=== PATIENT | male | born 1970 | race Two or more races ===

== ENCOUNTER 2018-11-03 12:26 | Emergency (ER) | payer SELFPAY ==
[~2018-11-03] VITALS: Ht 160 cm; Wt 82.6 kg
--- NOTE | 2018-11-03 12:34 | NUR ---
PT BIBRA FOR GLF FROM [employer], PT SLIPPED AND FELL ON LEFT KNEE. - KO, PEDAL PULSE PRESENT ON B EXT, PT AAOX4, RESPIRATIONS EVEN AND UNLABORED, NO SOB, NAD NOTED, PENDING ER PROVIDER EVAL
[2018-11-03] MEDS ORDERED: HYDROCODONE/APAP 5/325MG 1 EACH TABLET ONE (12:52)
[2018-11-03] MEDS ORDERED: HYDROCODONE/APAP 10/325MG 1 EA TABLET ONE (12:54)
[2018-11-03] MEDS ORDERED: HYDROCODONE/APAP 10/325MG 1 EA TABLET PO ONE (13:00)
[2018-11-03] MEDS ORDERED: HYDROMORPHONE INJ 0.5 MG/0.5 ML SYRINGE IM ONE (13:30)
[2018-11-03] MEDS ORDERED: HYDROMORPHONE INJ 2 MG/ML DISP.SYRIN ONE (13:30)
--- NOTE | 2018-11-03 13:50 | NUR ---
PT STILL COMPLAINS OF PAIN ON LEFT LEG, UNABLE TO PUT LEG IMMOBILIZER AT THIS TIME
--- NOTE | 2018-11-03 14:07 | NUR ---
EMT REMAINS UNABLE TO APPLY KNEE IMMOBILIZER TO L LEG. PT'S LEFT LEG IS ROTATED OUTWARD AND C/O VERY SEVERE PAIN IN THE L HIP WHEN ATTEMPTS ARE MADE TO ROTATE OR STRAIGHTEN THE LEG. SPOKE WITH DR SULLIVAN ON THE PHONE WHO PLACED A VERBAL ORDER FOR L HIP XRAY. NOTIFIED RADIOLOGY.
--- NOTE | 2018-11-03 15:32 | NUR ---
Patient discharged to home in stable condition. Written and verbal after care instructions given. Patient verbalizes understanding of instruction.
[2018-11-03 15:33] VITALS: BP 144/90
== END 2018-11-03 15:34 | disposition home or self-care (01) ==
LOC: ER 12:28
DX: S83.8X2A Sprain of other specified parts of left knee, initial encounter (principal); W01.0XXA Fall on same level from slipping, tripping and stumbling without subsequent striking against object, initial encounter; Y93.89 Activity, other specified; Y92.89 Other specified places as the place of occurrence of the external cause; Y99.8 Other external cause status
CPT/HCPCS: 29505; 73503; 73560; 96372; 99283; A4606; J1170; Z7610; 73502